=== PATIENT | female | born 1970 | race Two or more races ===

== ENCOUNTER 2018-08-24 15:45 | Emergency (ER) | payer BC, MEDICAID ==
[2018-08-24] MEDS ORDERED: Aspirin 81 MG Tab.Chew PO ONE (16:14)
--- NOTE | 2018-08-24 18:41 | EDM.PDOC ---
ED HPI GENERAL MEDICAL PROBLEM - General Chief Complaint: Respiratory Problem Stated Complaint: COUGH, SHORT OF BREATH Time Seen by Provider: 08/24/18 15:45 Source of Information: Reports: Patient History Limitations: Reports: No Limitations - History of Present Illness INITIAL COMMENTS - FREE TEXT/NARRATIVE: 47 y.o.w.f came to the ed due to sudden onset of chest pressure with cold like symptoms, running nose, nasal congestion. Pt is a smoker. No trauma, no H/O of CAD. No N/V/D or any other acute medical issues. BP 126/87 RR 24 pulse ox 100% on RA Temp 36.9 Pulse 93 Onset Date: 08/24/18 Onset Time: 09:00 Duration: Hour(s):, Intermittent Location: Reports: Chest Quality: Reports: Ache, Burning, Dull, Pressure Severity: Moderate Improves with: Reports: Rest Worsens with: Reports: Movement Context: Reports: Sick Contact Associated Symptoms: Reports: Cough (dry) - Related Data Allergies Allergy/AdvReac Type Severity Reaction Status Date / Time codeine Allergy Nausea Verified 04/12/14 13:47 morphine Allergy Itching Verified 04/12/14 13:47 naproxen Allergy Nausea Verified 04/12/14 13:47 Home Meds: Home Meds Cyanocobalamin (Vitamin B12) [Vitamin B12] 1,000 mcg IJ ASDIRECTED 05/28/13 [ History] Albuterol [Ventolin HFA] 2 puff .XX Q4H PRN 08/24/18 [History] Amitriptyline [Elavil] 10 mg PO BEDTIME 08/24/18 [History] FLUoxetine [PROzac] 10 mg PO DAILY 08/24/18 [History] Varenicline Tartrate [Chantix] 1 each PO ASDIRECTED 08/24/18 [History] Past Medical History Respiratory History: Reports: Bronchitis, Recurrent Gastrointestinal History: Reports: Bowel Obstruction Genitourinary History: Reports: None [employer] History: Reports: Ectopic , Other [employer] History: Musculoskeletal History: Reports: Fracture Other Musculoskeletal History: boxers fx R hand Neurological History: Reports: Migraines Psychiatric History: Reports: Addiction, Anxiety, Depression, Psych Hospitalization(s) Other Psychiatric History: Has been in tx for drug abuse Endocrine/Metabolic History: Reports: None Hematologic History: Reports: Anemia, Blood Transfusion(s) - Infectious Disease History Infectious Disease History: Reports: Chicken Pox - Past Surgical History HEENT Surgical History: Reports: Oral Surgery GI Surgical History: Reports: Bariatric Procedure, EGD, Other (See Below) Other GI Surgeries/Procedures: missing part of colon due to bowel obstruction Female Surgical History: Reports: Hysterectomy, Salpingo-Oophorectomy, Other (See Below) Other Female Surgeries/Procedures: hx tubal Musculoskeletal Surgical History: Reports: None Social & Family History - Family History Family Medical History: Noncontributory - Tobacco Use Smoking Status *Q: Former Smoker Years of Tobacco use: 37 Used Tobacco, but Quit: Yes Month/Year Tobacco Last Used: - Caffeine Use Caffeine Use: Reports: Coffee, Energy Drinks, Soda, Tea - Recreational Drug Use Recreational Drug Use: Yes Drug Use in Last 12 Months: No Recreational Drug Type: Reports: Amphetamines (Speed), Cocaine, Marijuana/ Hashish, Methamphetamine ED ROS GENERAL - Review of Systems Review Of Systems: See Below Constitutional: Reports: No Symptoms HEENT: Reports: No Symptoms Respiratory: Reports: No Symptoms Cardiovascular: Reports: Chest Pain Endocrine: Reports: No Symptoms GI/Abdominal: Reports: No Symptoms : Reports: No Symptoms Musculoskeletal: Reports: No Symptoms Skin: Reports: No Symptoms Neurological: Reports: No Symptoms Psychiatric: Reports: No Symptoms Hematologic/Lymphatic: Reports: No Symptoms Immunologic: Reports: No Symptoms ED EXAM, GENERAL - Physical Exam Exam: See Below Exam Limited By: No Limitations General Appearance: Alert, WD/WN, Mild Distress Eye Exam: Bilateral Eye: Normal Inspection Ears: Normal External Exam Ear Exam: Bilateral Ear: Auricle Normal Nose: Normal Inspection, Normal Mucosa, No Blood Throat/Mouth: Normal Inspection, Normal Lips, Normal Voice, No Airway Compromise Head: Atraumatic, Normocephalic Neck: Normal Inspection, Supple, Non-Tender, Full Range of Motion Respiratory/Chest: No Respiratory Distress, Lungs Clear, Normal Breath Sounds Cardiovascular: Normal Peripheral Pulses, Regular Rate, Rhythm, No Edema, No Gallop, No JVD, No Murmur, No Rub GI/Abdominal: Normal Bowel Sounds, Soft, Non-Tender, No Organomegaly, No Distention, No Abnormal Bruit, No Mass, Pelvis Stable (Female) Exam: Deferred Rectal (Female) Exam: Deferred Back Exam: Normal Inspection, Full Range of Motion Extremities: Normal Inspection, Normal Range of Motion, Non-Tender, No Pedal Edema, Normal Capillary Refill Neurological: Alert, Oriented, CN II-XII Intact, Normal Cognition, Normal Gait Psychiatric: Normal Affect, Normal Mood Skin Exam: Warm, Dry, Intact, Normal Color, No Rash Lymphatic: No Adenopathy EKG INTERPRETATION EKG Date: 08/24/18 Time: 16:05 Rhythm: NSR Rate (Beats/Min): 96 [place]: Normal P-Wave: Present QRS: Normal ST-T: Normal QT: Normal Comparison: NA - No Prior EKG Course - Vital Signs Text/Narrative:: 47 y.o.w.f came to the ed due to sudden onset of chest pressure with cold like symptoms, running nose, nasal congestion. Pt is a smoker. No trauma, no H/O of CAD. No N/V/D or any other acute medical issues. BP 126/87 RR 24 pulse ox 100% on RA Temp 36.9 Pulse 93 PE: WNWD WF with chest pressure Imaging: CXR NAD Lans: CBC, BMP Troponin nl BUN 22 Ca 8.4, however Impression: Atypical CP, Viral syndrome Tx: ASA Reexam: Symptoms subsided, Pt requested to be discharged Plan: D/C with instructions Last Recorded V/S: Last Vital Signs Temp 37.3 C 08/24/18 15:45 Pulse 86 08/24/18 18:30 Resp 19 08/24/18 18:30 BP 133/84 08/24/18 18:30 Pulse Ox 99 08/24/18 18:30 - Orders/Labs/Meds Orders: Active Orders 24 hr Category Date Time Status EKG Documentation Completion [RC] ASDIRECTED Care 08/24/18 16:14 Active CXR [Chest 2V] [CR] Stat Exams 08/24/18 16:12 Taken EKG 12 Lead [EK] Routine Ther 08/24/18 16:13 Ordered Labs: Laboratory Tests 08/24/18 08/24/18 08/24/18 Range/Units 16:30 16:30 16:30 WBC 6.0 (4.5-12.0) X10-3/uL RBC 4.52 (3.23-5.20) x10(6)uL Hgb 12.3 (11.5-15.5) g/dL Hct 38.9 (30.0-51.3) % MCV 86.1 (80-96) fL MCH 27.2 L (27.7-33.6) pg MCHC 31.6 L (32.2-35.4) g/dL RDW 13.3 (11.5-15.5) % Plt Count 246 (125-369) X10(3)uL MPV 8.4 (7.4-10.4) fL Neut % (Auto) 60.1 (46-82) % Lymph % (Auto) 27.0 (13-37) % [place] % (Auto) 11.4 (4-12) % Eos % (Auto) 1 (1.0-5.0) % Baso % (Auto) 1 (0-2) % Neut # (Auto) 3.7 (1.6-8.3) # Lymph # (Auto) 1.6 (0.6-5.0) # [place] # (Auto) 0.7 (0.0-1.3) # Eos # (Auto) 0.0 (0.0-0.8) # Baso # (Auto) 0.0 (0.0-0.2) # Sodium 141 (135-145) mmol/L Potassium 4.1 (3.5-5.3) mmol/L Chloride 107 (100-110) mmol/L Carbon Dioxide 21 (21-32) mmol/L BUN 22 H (7-18) mg/dL Creatinine 0.9 (0.55-1.02) mg/dL Est Cr Clr Drug Dosing 71.56 mL/min Estimated GFR (MDRD) > 60 (>60) BUN/Creatinine Ratio 24.4 H (9-20) Glucose 114 (80-116) mg/dL Lactic Acid (0.4-2.2) mmol/L Calcium 8.4 L (8.6-10.2) mg/dL Total Bilirubin (0.1-1.3) mg/dL Direct Bilirubin (0.10-0.20) mg/dL AST (5-25) IU/L ALT (12-36) U/L Alkaline Phosphatase (56-112) IU/L Troponin I < 0.017 L (<0.017-0.056) ng/mL Total Protein (6.0-8.0) g/dL Albumin (3.5-5.2) g/dL Amylase (25-115) U/L 08/24/18 08/24/18 Range/Units 16:30 16:30 WBC (4.5-12.0) X10-3/uL RBC (3.23-5.20) x10(6)uL Hgb (11.5-15.5) g/dL Hct (30.0-51.3) % MCV (80-96) fL MCH (27.7-33.6) pg MCHC (32.2-35.4) g/dL RDW (11.5-15.5) % Plt Count (125-369) X10(3)uL MPV (7.4-10.4) fL Neut % (Auto) (46-82) % Lymph % (Auto) (13-37) % [place] % (Auto) (4-12) % Eos % (Auto) (1.0-5.0) % Baso % (Auto) (0-2) % Neut # (Auto) (1.6-8.3) # Lymph # (Auto) (0.6-5.0) # [place] # (Auto) (0.0-1.3) # Eos # (Auto) (0.0-0.8) # Baso # (Auto) (0.0-0.2) # Sodium (135-145) mmol/L Potassium (3.5-5.3) mmol/L Chloride (100-110) mmol/L Carbon Dioxide (21-32) mmol/L BUN (7-18) mg/dL Creatinine (0.55-1.02) mg/dL Est Cr Clr Drug Dosing mL/min Estimated GFR (MDRD) (>60) BUN/Creatinine Ratio (9-20) Glucose (80-116) mg/dL Lactic Acid 1.6 (0.4-2.2) mmol/L Calcium (8.6-10.2) mg/dL Total Bilirubin 0.1 (0.1-1.3) mg/dL Direct Bilirubin 0.07 L (0.10-0.20) mg/dL AST 18 (5-25) IU/L ALT 26 (12-36) U/L Alkaline Phosphatase 95 (56-112) IU/L Troponin I (<0.017-0.056) ng/mL Total Protein 6.6 (6.0-8.0) g/dL Albumin 3.3 L (3.5-5.2) g/dL Amylase 35 (25-115) U/L Meds: Medications Discontinued Medications Generic Name Dose Route Start Last Admin Trade Name Samson PRN Reason Stop Dose Admin Aspirin 324 mg 08/24/18 16:14 08/24/18 16:19 Aspirin PO 08/24/18 16:15 324 mg ONETIME ONE Administration Departure - Departure Time of Disposition: 18:38 Disposition: Home, Self-Care 01 Condition: Good Clinical Impression: Atypical chest pain, Viral syndrome - Discharge Information Instructions: Nonspecific Chest Pain, [id number], Viral Illness, Adult Referrals: Jed Alonzo MD [Primary Care Provider] - Forms: ED Department Discharge Additional Instructions: Please increase water intake, please follow up with your regular MD at clinic as needed , take Tylenol for pain, come back if your symptoms get worse acutely - My Orders Last 24 Hours: My Active Orders 08/24/18 16:12 CXR [Chest 2V] [CR] Stat 08/24/18 16:13 EKG 12 Lead [EK] Routine 08/24/18 16:14 EKG Documentation Completion [RC] ASDIRECTED - Assessment/Plan Last 24 Hours: My Active Orders 08/24/18 16:12 CXR [Chest 2V] [CR] Stat 08/24/18 16:13 EKG 12 Lead [EK] Routine 08/24/18 16:14 EKG Documentation Completion [RC] ASDIRECTED
[2018-08-24 20:09] VITALS: BP 133/84
== END 2018-08-24 18:48 | disposition home or self-care (01) ==
LOC: FB.ED 15:45
DX: R07.89 Other chest pain (principal); B34.9 Viral infection, unspecified; Z88.5 Allergy status to narcotic agent; Z88.8 Allergy status to other drugs, medicaments and biological substances; Z87.891 Personal history of nicotine dependence
CPT/HCPCS: 36415; 71046; 80048; 80076; 82150; 83605; 84484; 85025; 93005; 99284; A9270